=== PATIENT | female | born 1995 | race Two or more races ===

== ENCOUNTER 2017-04-13 23:14 | Emergency (ER) | payer SELFPAY ==
--- NOTE | 2017-04-13 23:22 | NUR ---
PATIENT NOT IN WAITING ROOM
--- NOTE | 2017-04-13 23:30 | NUR ---
CALLED X2; NO ANSWER
--- NOTE | 2017-04-13 23:36 | NUR ---
CALLED AGAIN X4; NOT IN LOBBY. INFORMED PT LEFT.
== END 2017-04-13 23:37 | disposition left against medical advice (07) ==
LOC: ER 23:14
DX: Z53.21 Procedure and treatment not carried out due to patient leaving prior to being seen by health care provider (principal)